=== PATIENT | female | born 1930 | race Caucasian/White ===

== ENCOUNTER 2016-03-23 10:35 | Emergency (ER) | payer MEDICARE, MEDICAID ==
[2016-03-23 11:45] LABS: ABSOLUTE NEUTROPHIL COUNT 8.7 K/mm3 (1.8-7.7); BASO % 0.1 % (0.2-1.0); HEMATOCRIT 38.5 % (37.0-47.0); HEMOGLOBIN 12.4 gm/l (12.0-16.0); IMM NEUT% 0.3 % (0-1); LYMPH # 0.2 (1.0-4.8); LYMPH % 2.3 % (15-45); MEAN CELL VOLUME 93.4 fl (81.0-99.0); MEAN CORPUSCULAR HEMOGLOBIN 30.1 pg (27.0-31.0); MEAN CORPUSCULAR HGB CONC 32.2 g/dl (33.0-37.0); MEAN PLATELET VOLUME 9.5 fl (7.4-10.4); MONO # 0.2 (0.0-0.8); MONO % 1.9 % (4-12); NEUT % 95.4 % (43-75); PLATELET COUNT 180 K/mm3 (130-400); RED CELL DISTRIBUTION WIDTH 13.4 % (11.5-14.5)
[2016-03-23 11:58] LABS: ALB/GLOB RATIO 1.4 (>1.0); ALBUMIN 3.7 gm/dL (3.5-5.7); CALCIUM 9.7 mg/dL (8.6-10.3)
[2016-03-23] MEDS ORDERED: ONDANSETRON 4 MG/2ML 2 ML VIAL ONE (12:18)
[2016-03-23] MEDS ORDERED: MAALOX/LIDO2%VISC/SIMETHICONE 40 ML BOT ONE (12:18)
[2016-03-23 12:36] LABS: BAND 6 % (0-10); BASOPHIL 0 % (0-1); EOSINOPHIL 0 % (1-3); LYMPHOCYTE 4 % (15-45); MONOCYTE 1 % (4-12); NEUTROPHILS 89 % (43-75); PLATELET ESTIMATE NORMAL (NORMAL); TOTAL CELLS COUNTED 100
== END 2016-03-23 16:11 | disposition home or self-care (01) ==
LOC: ED 10:35
DX: R11.2 Nausea with vomiting, unspecified (principal); I10 Essential (primary) hypertension
CPT/HCPCS: 83690; 85025; 80053; 99283 ×2; 96374; A9270; J2405